=== PATIENT | male | born 1975 | race Caucasian/White ===

== ENCOUNTER 2021-12-01 09:41 | Emergency (ER) | payer OTHER | END 2021-12-01 12:39 | disposition left against medical advice (07) | LOC: FER 09:41 | DX: R20.2 Paresthesia of skin (principal); Z53.29 Procedure and treatment not carried out because of patient's decision for other reasons; Z28.310 Unvaccinated for COVID-19 | CPT/HCPCS: 93005 ==

== ENCOUNTER 2021-12-01 18:38 | Emergency (ER) | payer OTHER ==
[2021-12-02 00:19] LABS: BASOPHIL 0.8 % (0-2); EOSINOPHIL 2.5 % (0-5); HCT 41.3 % (42.0-52.0); MCH 31.1 pg (25.0-31.0); MCHC 33.9 g/dL (32.0-36.0); MCV 91.8 fL (78.0-100.0); MONOCYTE 7.8 % (0-12); MPV 10.2 fL (6.0-9.5); NEUTROPHIL 61.6 % (41-80); NRBC 0; PLT 362 K/uL (150-400); RDW 13.4 % (11.5-14.0); WBC 9.1 K/uL (4.0-10.5)
== END 2021-12-02 00:20 | disposition home or self-care (01) ==
LOC: FER 18:38
PROVIDERS: Internal Medicine
DX: R20.2 Paresthesia of skin (principal); F17.290 Nicotine dependence, other tobacco product, uncomplicated; Z88.5 Allergy status to narcotic agent; Z88.0 Allergy status to penicillin; Z91.041 Radiographic dye allergy status; Z28.310 Unvaccinated for COVID-19
CPT/HCPCS: 36415; 85025